=== PATIENT | female | born 1985 | race Caucasian/White ===

== ENCOUNTER → 2020-05-31 | Outpatient (CLI) | payer OTHER ==
[~2020-05-31] MED LIST: ADDERALL 10 MG10 MG PO; ADDERALL XR 2020 MG PO; ATIVAN1 MG PO; AZO STANDARD95 MG PO; GABAPENTIN300 MG PO; NUVARING VAGIN1 EACH VG; PAROXETINE HCL30 MG PO; SEROQUEL XR50 MG PO
== END ==
LOC: ULTRA 08:41
PROVIDERS: ATTEND Nurse Practitioner
DX: K76.0 Fatty (change of) liver, not elsewhere classified (principal)

== ENCOUNTER → 2020-06-05 | Outpatient (CLI) | payer OTHER ==
[~2020-06-05] MED LIST changes: +BUPROPION XL300 MG PO; +HYDROXYZINE HCL25 M2 PO; +OMEPRAZOLE40 MG PO
== END ==
LOC: MRI 06:58
PROVIDERS: ATTEND Nurse Practitioner
DX: K80.80 Other cholelithiasis without obstruction (principal)

== ENCOUNTER → 2020-06-06 | Outpatient (CLI) | payer OTHER ==
[~2020-06-06] MED LIST changes: +COLACE 100 MG100 MG PO; +HYDROCODON-ACE1 EAC7 PO; +IBUPROFEN 200200 M1 PO; +MIRALAX17 GM PO
== END ==
LOC: LAB 13:57
PROVIDERS: ATTEND Student in an Organized Health Care Education/Training Program
DX: Z01.812 Encounter for preprocedural laboratory examination (principal); Z11.59 Encounter for screening for other viral diseases

== ENCOUNTER 2020-06-07 07:58 | Day surgery (SDC) | payer OTHER ==
[~2020-06-07] VITALS: Ht 165.1 cm; Wt 80.3 kg
[~2020-06-07 07:58] MED LIST changes: -COLACE 100 MG100 MG PO; -HYDROCODON-ACE1 EAC7 PO; -IBUPROFEN 200200 M1 PO; -MIRALAX17 GM PO
[2020-06-07 08:54] VITALS: BP 119/83
[2020-06-07 09:14] LABS: ABSOLUTE NEUTROPHILS 5.4 thou/uL (1.4-8.2); BASOPHILS 0.7 % (0.0-2.0); EOSINOPHILS 0.4 % (0.0-3.0); HEMATOCRIT 43.3 % (37.0-47.0); HEMOGLOBIN 14.4 gm/dL (12.0-15.0); LYMPHOCYTES 23.1 % (24.0-44.0); MCH 29.6 pg (26.0-34.0); MCHC 33.4 g/dL (28.0-37.0); MCV 88.6 fL (80.0-100.0); PLATELET COUNT 305 thou/uL (150-400); POLYS 70.8 % (36.0-66.0); RBC 4.88 mil/uL (4.20-5.00); RDW 13.5 % (10.5-14.5); WBC 7.7 thou/uL (4.0-11.0)
[2020-06-07 09:18] LABS: CALCIUM 9.3 mg/dL (8.5-10.1); POTASSIUM 4.3 mmol/L (3.5-5.1)
[2020-06-07 09:24] LABS: ALBUMIN 4.1 g/dL (3.4-5.0); TOTAL BILIRUBIN 0.7 mg/dL (0.2-1.0); TOTAL PROTEIN 8.1 g/dL (6.4-8.2)
[2020-06-07] MEDS ORDERED: IBUPROFEN 200200 M1 PO (11:25)
[2020-06-07] MEDS ORDERED: HYDROCODON-ACE1 EAC7 PO (11:25)
[2020-06-07] MEDS ORDERED: MIRALAX17 GM PO (11:26)
[2020-06-07] MEDS ORDERED: COLACE 100 MG100 MG PO (11:26)
--- NOTE | 2020-06-07 14:06 | NUR ---
PT ARRIVED ON UNIT, AOX4, PT RATES PAIN 4/10 IN ABDOMINAL AREA. PT 4 LAP SITES ARE CDI, IV RIGHT HAND IS PATENT. PT TOLERATING LIQUIDS AT THIS TIME. PT REPORTS HER GOAL IS TO RETURN HOME THIS EVENING. BOYFRIEND AT BEDSIDE. WILL CONTINUE TO MONITOR.
[2020-06-07 16:26] VITALS: BP 102/56
[2020-06-07 17:58] VITALS: BP 102/56
[2020-06-07 18:52] VITALS: BP 155/73
--- NOTE | 2020-06-11 18:06 | PATH ---
[facility] [place] [address] PATHOLOGY RPT PROCEDURE Name: KEILY MOORE Room #: DEP [facility] M.R.#: [id number] Admission: 06/07/20 Date of : 85 Discharge: 06/07/20 Report #: [id number] Path Case #: [id number] [facility] Accession Number: [id number] . 01 Material submitted: . gallbladder - GALLBLADDER . 01 Clinical history: . Biliary colic . 02 Diagnosis: Gallbladder, cholecystectomy: - Mild chronic cholecystitis. (IUV:pit 06/11/2020) QTP 06/11/2020 1346 Local . 02 Electronically signed: . Siena Scott MD, Pathologist NPI- [id number] . 01 Gross description: . The specimen is received in formalin labeled "Keily Moore, gallbladder" and consists of an intact green gallbladder measuring 6.5 x 2.6 x 2.5 cm. The margin is inked black. Opening reveals a lumen filled with viscous green bile and no calculi. The mucosa is green and velvety with an average wall thickness of 0.1 cm. No masses are identified. Plate Maker sections are submitted in A1. (SDY; 06/08/2020) SYU/SYU 06/08/2020 1047 Local . 02 Pathologist provided ICD-10: K81.1 . 02 CPT . 734161 Specimen Comment: A courtesy copy of this report has been sent to [phone] Specimen Comment: [phone] Specimen Comment: Report sent to / DR ABDALLA Performed at: [address], [place] [id number] MD Alok Rios MD Phone: [phone] Performed at: [address] [id number] MD Siena Scott MD Phone: [phone]
== END 2020-06-07 19:07 | disposition home or self-care (01) ==
LOC: 4S 07:58 → OR 07:58 → TBA 08:04 → 4S 12:44 → OR 14:51
PROVIDERS: ATTEND Surgery
DX: K81.1 Chronic cholecystitis (principal); R10.9 Unspecified abdominal pain; F32.9 Major depressive disorder, single episode, unspecified; F41.9 Anxiety disorder, unspecified; K21.9 Gastro-esophageal reflux disease without esophagitis; Z98.890 Other specified postprocedural states; Z79.899 Other long term (current) drug therapy; Z87.891 Personal history of nicotine dependence; Z90.49 Acquired absence of other specified parts of digestive tract
CPT/HCPCS: 10102; 50010; 50101; 50249; 50411; 50555; 50558; 51489; 52265; 52266; 53307; 53310; 53312; 54022; 54118; 55245; 56462; 56525; 56526; 56674; 62110; 62900; 70005

== ENCOUNTER 2020-07-09 08:31 | Emergency (ER) | payer OTHER ==
[~2020-07-09] VITALS: Ht 165.1 cm; Wt 83.9 kg
[~2020-07-09 08:31] MED LIST changes: +COLACE 100 MG100 MG PO; +HYDROCODON-ACE1 EAC7 PO; +IBUPROFEN 200200 M1 PO; +MIRALAX17 GM PO
[2020-07-09 08:56] LABS: URINE BILIRUBIN NEGATIVE (Negative); URINE BLOOD NEGATIVE (Negative); URINE CLARITY CLEAR; URINE COLOR YELLOW; URINE GLUCOSE-RANDOM* NEGATIVE (Negative); URINE KETONES NEGATIVE (Negative); URINE LEUKOCYTES-REFLEX NEGATIVE (Negative); URINE NITRITE-REFLEX NEGATIVE (Negative); URINE PROTEIN (DIPSTICK) NEGATIVE (Negative); URINE SPECIFIC GRAVITY 1.015 (1.005-1.035); URINE UROBILINOGEN 0.2 E.U./dl (0.2-1.0)
[2020-07-09 09:00] LABS: ABSOLUTE NEUTROPHILS 3.4 thou/uL (1.4-8.2); EOSINOPHILS 1.4 % (0.0-3.0); HEMATOCRIT 43.8 % (37.0-47.0); HEMOGLOBIN 14.8 gm/dL (12.0-15.0); LYMPHOCYTES 29.2 % (24.0-44.0); MCH 29.7 pg (26.0-34.0); MCHC 33.8 g/dL (28.0-37.0); MCV 88.1 fL (80.0-100.0); MONOCYTES 4.6 % (1.0-8.0); PLATELET COUNT 309 thou/uL (150-400); POLYS 63.8 % (36.0-66.0); RBC 4.97 mil/uL (4.20-5.00); RDW 13.2 % (10.5-14.5); WBC 5.4 thou/uL (4.0-11.0)
[2020-07-09 09:07] LABS: POTASSIUM 3.8 mmol/L (3.5-5.1)
[2020-07-09 09:13] LABS: TOTAL BILIRUBIN 0.7 mg/dL (0.2-1.0)
[2020-07-09] MEDS ORDERED: ZOFRAN ODT4 MG PO (11:06)
[2020-07-09 11:17] VITALS: BP 114/74
== END 2020-07-09 11:18 | disposition home or self-care (01) ==
LOC: ER 08:31
PROVIDERS: Emergency Medicine
DX: G89.18 Other acute postprocedural pain (principal); R10.84 Generalized abdominal pain; R19.7 Diarrhea, unspecified; R11.10 Vomiting, unspecified; R14.0 Abdominal distension (gaseous); M79.7 Fibromyalgia; F32.9 Major depressive disorder, single episode, unspecified; F41.9 Anxiety disorder, unspecified; K21.9 Gastro-esophageal reflux disease without esophagitis; Z90.49 Acquired absence of other specified parts of digestive tract

== ENCOUNTER → 2020-07-26 | Outpatient (CLI) | payer OTHER ==
[~2020-07-26] MED LIST changes: +ZOFRAN ODT4 MG PO
== END ==
LOC: MRI 11:32
PROVIDERS: ATTEND Family Medicine
DX: M54.30 Sciatica, unspecified side (principal)